=== PATIENT | female | born 1990 | race Hispanic/Latino ===

== ENCOUNTER 2020-01-22 07:17 | Inpatient (IN) | payer OTHER ==
[~2020-01-22] VITALS: Ht 154.9 cm; Wt 86.6 kg
[2020-01-22] MEDS ORDERED: AMPICILLIN 2GM+NS 100ML 100 ML IV ONE (07:41)
[2020-01-22] MEDS ORDERED: OXYTOCIN-LR 20 UNITS/1000 ML 1,000 ML IV ONE ×2 (07:41→08:36)
[2020-01-22] MEDS ORDERED: LIDOCAINE HCL 1% 20 ML VIAL ONE (07:57)
[2020-01-22] MEDS ORDERED: METHYLERGONOVINE MALEATE 0.2 MG/1 ML ML ONE (08:05)
[2020-01-22 08:07] LABS: APPEARANCE,URINE Clear (CLEAR); BILIRUBIN,URINE Negative (NEGATIVE); COLOR,URINE Yellow (YELLOW); GLUCOSE, URINE (UA) Negative (NEGATIVE); KETONES,URINE Trace mg/dL (NEGATIVE); LEUKOCYTE ESTERASE ,URINE Negative (NEGATIVE); NITRATE,URINE Negative (NEGATIVE); OCCULT BLOOD,URINE Negative (NEGATIVE); PH,URINE 7.5 (5.0-8.0); PROTEIN,URINE Negative (NEGATIVE)
[2020-01-22 08:11] LABS: BACTERIA,URINE Rare /HPF (None Seen); RBC,URINE 0-1 /HPF (0-1); SQUAMOUS EPITHELIAL CELL,UR Rare /HPF (0-2); WBC,URINE 0-1 /HPF (0-1)
[2020-01-22 08:14] LABS: AMPHET/METH SCREEN,URINE NEGATIVE (NEGATIVE); BARBITURATE SCREEN, URINE NEGATIVE (NEGATIVE); BENZODIAZEPINES SCREEN,URINE NEGATIVE (NEGATIVE); CANNABINOID SCREEN,URINE NEGATIVE (NEGATIVE); COCAINE SCREEN,URINE NEGATIVE (NEGATIVE); OPIATE SCREEN,URINE NEGATIVE (NEGATIVE); PHENCYCLIDINE SCREEN,URINE NEGATIVE (NEGATIVE)
[2020-01-22] MEDS ORDERED: OXYTOCIN 10 USP UNITS/ML ONE (08:20)
[2020-01-22] MEDS ORDERED: MISOPROSTOL 200 MCG TABLET ONE (08:21)
[2020-01-22 08:34] LABS: MEAN CORPUSCULAR HEMOGLOBIN 29.6 pg (27.0-33.0); MEAN CORPUSCULAR HGB CONC 33.3 g/dL (32.0-36.0); MEAN CORPUSCULAR VOLUME 88.9 fL (79-99); RED BLOOD CELL COUNT(AUTO) 4.5 MIL/uL (4.00-5.50); RED CELL DISTRIBUTION WIDTH 15.6 % (11.0-15.5); WHITE BLOOD COUNT (AUTO) 10.1 K/uL (4.8-10.8)
[2020-01-22] MEDS ORDERED: LACTATED RINGERS 1000ML 1,000 ML IV PRN (08:45)
[2020-01-22] MEDS ORDERED: ACETAMINOPHEN-CODEINE 300/30MG TAB PO PRN (09:00)
[2020-01-22] MEDS ORDERED: WITCH HAZEL 1 PAD TP PRN (09:00)
[2020-01-22] MEDS ORDERED: ACETAMINOPHEN 325 MG TAB PO PRN (09:00)
[2020-01-22] MEDS ORDERED: BENZOCAINE/LANOLIN/ALOE VERA 60 ML AEROSOL TP PRN (09:00)
[2020-01-22] MEDS ORDERED: DIPH,PERTUSS(ACELL),TET VAC/PF 0.5 ML VIAL IM PRN (09:00)
[2020-01-22] MEDS ORDERED: LANOLIN 30GM OINTMENT TP PRN (09:00)
[2020-01-22] MEDS ORDERED: OXYTOCIN-LR 20 UNITS/1000 ML 1,000 ML IV SCH (09:00)
[2020-01-22] MEDS ORDERED: MEASLES/MUMPS/RUBELLA VACCINE, LIVE 0.5 ML/VIAL SQ PRN (09:00)
[2020-01-22] MEDS ORDERED: PREN-154 PO (11:38)
[2020-01-22] MEDS: DOCUSATE SODIUM 100 MG CAP PO SCH ×2 (11:43→20:39)
[2020-01-22] MEDS: IBUPROFEN 600 MG TABLET PO PRN (11:44)
[2020-01-22 12:01] VITALS: BP 117/72
[2020-01-22 16:43] VITALS: BP 112/80
[2020-01-22 19:27] VITALS: BP 131/76
[2020-01-22 23:29] VITALS: BP 141/81
[2020-01-23 03:05] VITALS: BP 116/79
--- NOTE | 2020-01-23 04:10 | NUR ---
BYRD CATHETER DISCONTINUED, SE CARE DONE. PT.INST TO CALL FOR ASSIST BEFORE GETTING OUT OF BED, VERBALIZED UNDERSTANDING. Addendum: 01/23/20 at 0432 by MARCO ANTONIO PALUMBO RN RN Amended: Links added.
[2020-01-23 07:55] VITALS: BP 110/69
[2020-01-23 07:55] LABS: HEMATOCRIT 35.2 % (36-48); MEAN CORPUSCULAR HEMOGLOBIN 29.9 pg (27.0-33.0); MEAN CORPUSCULAR HGB CONC 33.8 g/dL (32.0-36.0); MEAN CORPUSCULAR VOLUME 88.4 fL (79-99); RED BLOOD CELL COUNT(AUTO) 3.98 MIL/uL (4.00-5.50); RED CELL DISTRIBUTION WIDTH 15.8 % (11.0-15.5); WHITE BLOOD COUNT (AUTO) 11.3 K/uL (4.8-10.8)
[2020-01-23] MEDS: DOCUSATE SODIUM 100 MG CAP PO SCH (09:07)
[2020-01-23] MEDS: IBUPROFEN 600 MG TABLET PO PRN (09:09)
--- NOTE | 2020-01-23 09:30 | NUR ---
[facility] NOTE: SW met with pt. who is awake, alert and oriented. Pt. reports that this is her first /delivery and has named BB Gerardo Noe. Pt. is single and recently relocated to [place] from [place] and now resides with her father and step mother; FOB in [place]. Pt. reports that she received care in [place] up to 34weeks prior to relocating. Pt. declined to provide information on the reason for relocation, stating that she "does not want to get in to that". Pt. denies any history of domestic violence or abuse, denies any legal problems, denies any history of depression, anxiety, or other mental illness. Pt. denies any history of suicide attempts, inpatient psych treatment. Pt. denies any current thoughts of harm to self or others. Pt. denies any use of illicit substances, etoh or tobacco. Pt. is not employed, receives [employer] benefits and is Medicaid pending. Pt.'s father is obtaining carseat prior to BB's discharge and public service administrator will be Carmelina Ha. Pt. provided with information on PPD, signs, symptoms and when to seek medical advice; pt. verbalized an understanding. Pt. reports that her father and step mother will assist with care of BB post discharge. Pt's father Hugo Jimenez [phone] will provide transportation at discharge. Pt. voiced no SS needs or concerns. PLAN: Pt. and BB to be discharged home when medically cleared. Addendum: 01/23/20 at 1308 by WILNER VARGAS SS Amended: Links added.
[2020-01-23 10:14] LABS: HEPATITIS Bs ANTIGEN SCREEN P Negative (Negative)
[2020-01-23 11:39] VITALS: BP 116/69
[2020-01-23 13:06] LABS: RAPID PLASMA REAGIN NONREACTIVE (NONREACTIVE)
--- NOTE | 2020-01-23 14:20 | NUR ---
pt is waiting for baby to be discharged. Addendum: 01/23/20 at 1540 by JUAN RAMON ACE RN Amended: Links added.
--- NOTE | 2020-01-23 14:20 | NUR ---
pt is discharged, verbal and written discharge instructions given, pls refer to exit care. informed of the follow up appointment, prescription given. informed to call the doctor for further concerns. pt voiced understanding to all things discussed. Addendum: 01/23/20 at 1538 by JUAN RAMON ACE RN Amended: Links added.
[2020-01-23 16:05] VITALS: BP 118/77
--- NOTE | 2020-01-23 18:24 | NUR ---
pt is dismissed with baby in stable condition, brought to private car via wheelchair by Nereida peace - pcp Addendum: 01/23/20 at 1832 by JUAN RAMON ACE RN Amended: Links added.
== END 2020-01-23 18:24 | disposition home or self-care (01) | DRG 807 ==
LOC: EDH 07:17 → LDH 07:22 → OBSVTOIN 07:22 → LDH 08:02 → WSH 11:30
PROVIDERS: ADMIT Obstetrics & Gynecology; ATTEND Obstetrics & Gynecology
PROC: 0KQM0ZZ Repair Perineum Muscle, Open Approach (ICD-10-PCS; principal; 2020-01-22)
PROC: 10E0XZZ Delivery of Products of Conception, External Approach (ICD-10-PCS; 2020-01-22)
PROC: 3E0334Z Introduction of Serum, Toxoid and Vaccine into Peripheral Vein, Percutaneous Approach (ICD-10-PCS; 2020-01-22)
PROC: 3E0234Z Introduction of Serum, Toxoid and Vaccine into Muscle, Percutaneous Approach (ICD-10-PCS; 2020-01-22)
PROC: 3E0134Z Introduction of Serum, Toxoid and Vaccine into Subcutaneous Tissue, Percutaneous Approach (ICD-10-PCS; 2020-01-22)
DX: O77.0 Labor and delivery complicated by meconium in amniotic fluid (principal); Z37.0 Single live birth; O70.1 Second degree perineal laceration during delivery; Z3A.38 38 weeks gestation of pregnancy; O26.893 Other specified pregnancy related conditions, third trimester; Z67.41 Type O blood, Rh negative; Z23 Encounter for immunization
CPT/HCPCS: 36415; 80305; 81001; 83033; 85027; 86592; 86701; 86850; 86870; 86900; 86901; 87340; 87390; A4351; G0378; J0290; J2210; J2590; J2791